=== PATIENT | male | born 1980 | race Caucasian/White ===

== ENCOUNTER 2017-01-25 19:07 | Observation (INO) | payer OTHER ==
[2017-01-25] MEDS ORDERED: NITROGLYCERIN SL TABS 0.4 MG TAB SUBLINGUAL STA (19:24)
[2017-01-25] MEDS ORDERED: diphenhydrAMINE 50 MG/ML 1 ML VIAL IVP STA (19:24)
[2017-01-25] MEDS ORDERED: SODIUM CHLORIDE 0.9% 500 ML IV STA (19:24)
[2017-01-25] MEDS ORDERED: ASPIRIN 81 MG PO STA (19:24)
[2017-01-25 19:53] LABS: Basophils % (A) 1 %; CH 32.8; CHCM 36.7; Eosinophils # (A) 0.1 k/uL (0-0.7); Eosinophils % (A) 1 %; HGB 16.6 gm/dL (13.0-17.5); Luc # (Auto) 0.21; Luc % (Auto) 3; Lymphocytes # (A) 1.2 k/uL (1.0-4.8); Lymphocytes % (A) 17 %; MCH 31.6 pg (25.0-35.0); MCHC 35.2 g/dL (31.0-37.0); MCV 89.7 fL (80.0-100.0); Mean Platelet Volume 6.6; Monocytes # (A) 0.5 k/uL (0-1.0); Monocytes % (A) 7 %; Neutrophils # (A) 5.2 k/uL (1.3-7.7); Neutrophils % (A) 72 %; RBC 5.25 m/uL (4.30-5.90); RDW 12.3 % (11.5-15.5); WBC 7.1 k/uL (3.8-10.6); WBC (Perox) 6.69
[2017-01-25 19:59] LABS: ALT 39 U/L (21-72); AST 30 U/L (17-59); Alkaline Phosphatase 75 U/L (38-126); Anion Gap 13 mmol/L; Blood Urea Nitrogen 14 mg/dL (9-20); Carbon Dioxide 24 mmol/L (22-30); Chloride 102 mmol/L (98-107); Glucose 99 mg/dL (74-99); Non-African American GFR(MDRD) >60 (>60 ml/min/1.73 sqM); Potassium 3.9 mmol/L (3.5-5.1); Sodium 139 mmol/L (137-145); Total Bilirubin 0.6 mg/dL (0.2-1.3); Total Protein 7.3 g/dL (6.3-8.2)
--- NOTE | 2017-01-25 20:01 | ED ---
Chest Pain HPI - General Chief Complaint: Chest Pain Stated Complaint: chest tightness, family Hx Time Seen by Provider: 01/25/17 19:19 Source: patient, RN notes reviewed Mode of arrival: wheelchair Limitations: no limitations - History of Present Illness Initial Comments: This a 36-year-old male presents emergency Department with chief complaint of chest pain. Patient states that he is plan the [facility] around 11:30 AM this morning and states he developed pain. Patient states it's centralized left chest pain with burning sensation over his left anterior chest wall and pain that radiates to his back. Patient denies any headache, dizziness, fever, chills. He does have some shortness of breath pain with deep inspiration. Patient states that he is very anxious is not sure if this is related to anxiety. Patient states he is a recovering drug addict and does not want any Kernig's or benzodiazepines. Patient states that he does not have a history of hyperlipidemia, diabetes, hypertension no he does not see a physician on a regular basis. Patient does state that he has a strong family history of cardiac disease. Patient states that he typically smokes 2 cigars daily. - Related Data Home Medications Medication Instructions Recorded Confirmed Aspirin/Acetaminophen/Caffeine 1 tab PO DAILY PRN 01/25/17 01/25/17 [Excedrin Migraine Caplet] Ranitidine HCl [Zantac] 75 mg PO DAILY PRN 01/25/17 01/25/17 Allergies Allergy/AdvReac Type Severity Reaction Status Date / Time bee venom protein (honey bee) Allergy Anaphylaxis Verified 01/25/17 20:40 NARCOTICS Allergy Unknown Uncoded 01/25/17 20:40 Review of Systems ROS Statement: Those systems with pertinent positive or pertinent negative responses have been documented in the HPI. ROS Other: All systems not noted in ROS Statement are negative. EKG Findings - EKG Comments: EKG Findings:: EKG performed at 19:27 normal sinus rhythm with a rate of 99 NM interval 174 QRS duration 84 QT/QTC 322/413 Past Medical History Past Medical History: No Reported History History of Any Multi-Drug Resistant Organisms: None Reported Past Surgical History: No Surgical Hx Reported Past Psychological History: Anxiety Smoking Status: Light tobacco smoker Past Alcohol Use History: None Reported Past Drug Use History: None Reported General Exam Limitations: no limitations General appearance: alert, in no apparent distress Head exam: Present: atraumatic, normocephalic, normal inspection Neck exam: Present: normal inspection, full ROM. Absent: tenderness, meningismus, lymphadenopathy Respiratory exam: Present: normal lung sounds bilaterally. Absent: respiratory distress, wheezes, rales, rhonchi, stridor Cardiovascular Exam: Present: regular rate, normal rhythm, normal heart sounds. Absent: systolic murmur, diastolic murmur, rubs, gallop, clicks GI/Abdominal exam: Present: soft, normal bowel sounds. Absent: distended, tenderness, guarding, rebound, rigid Neurological exam: Present: alert, oriented X3, CN II-XII intact Psychiatric exam: Present: anxious Skin exam: Present: warm, dry, intact, normal color. Absent: rash Course Vital Signs 01/25/17 01/25/17 19:14 20:45 Temperature 97.5 F L Pulse Rate 97 92 Respiratory 20 16 Rate Blood Pressure 135/82 147/78 O2 Sat by Pulse 100 100 Oximetry Disposition Clinical Impression: Chest pain Disposition: ADMITTED IP TO THIS HOSP Condition: Stable Referrals: None,Stated [Primary Care Provider] - 1-2 days
[2017-01-25 20:03] LABS: INR 1.1 (<1.2); Partial Thromboplastin Time 24.9 sec (22.0-30.0); Prothrombin Time 11.3 sec (9.0-12.0)
[2017-01-25 20:11] LABS: Creatine Kinase 481 U/L (55-170)
--- NOTE | 2017-01-25 20:17 | XR ---
EXAMINATION TYPE: XR chest 2V DATE OF EXAM: 01/25/2017 COMPARISON: NONE HISTORY: Chest pain TECHNIQUE: Frontal and lateral views of the chest are obtained. FINDINGS: Heart and mediastinum are normal. Lungs are clear. Diaphragm is normal. Bony thorax is int act. There are chest leads. IMPRESSION: Normal chest
[2017-01-25 20:23] LABS: Creatine Kinase MB 0.9 ng/mL (0.0-2.4); Troponin I <0.012 ng/mL (0.000-0.034)
[2017-01-25] MEDS ORDERED: HEPARIN SODIUM,PORCINE 5,000 UNIT/ML 1 ML VIAL IV ONE (21:05)
[2017-01-25] MEDS ORDERED: HEPARIN SODIUM,PORCINE 5,000 UNIT/ML 1 ML VIAL IV PRN (21:05)
[2017-01-25] MEDS ORDERED: HEPARIN SODIUM,PORCINE/D5W PMX 25,000 UNIT in DEXTROSE/WATER 1 500ML.BAG IV SCH (21:15)
[2017-01-25] MEDS ORDERED: NITROGLYCERIN SL TABS 0.4 MG TAB SUBLINGUAL PRN (21:24)
[2017-01-25] MEDS ORDERED: ACETAMINOPHEN TAB 325 MG TAB PO PRN (22:19)
[2017-01-25] MEDS ORDERED: FAMOTIDINE 20 MG TAB PO PRN (22:21)
--- NOTE | 2017-01-25 22:31 | P.HPIM ---
History of Present Illness H&P Date: 01/25/17 Chief Complaint: Chest pain 36-year-old male with past medical history significant for anxiety and GERD presented to emergency department because of the fourth episode of chest pain since October. The pain started at 11 in the morning today when he was playing guitar. The pain feels like burning sensation in the left side of the chest and is associated with tightness in the left side of the neck. The pain has been constant since it started and he actually is still having it at the time of the encounter. He denies having any recent flulike illness. He did mention some nausea, ''feeling loopy'', but no vomiting, palpitations or shortness of breath. Patient thought that he was having a panic attack because he suffers from a lot of anxiety. He describes having a panic attack on average every 3 weeks. He went to a psychiatrist who offered him medications to treat anxiety but he refused. Review of Systems 12 point review of system performed, negative except for HPI Past Medical History Past Medical History: No Reported History Additional Past Medical History / Comment(s): Anxiety, GERD History of Any Multi-Drug Resistant Organisms: None Reported Past Surgical History: No Surgical Hx Reported Past Psychological History: Anxiety Smoking Status: Light tobacco smoker Past Alcohol Use History: None Reported Past Drug Use History: None Reported - Past Family History Father Additional Family Medical History / Comment(s): Father had coronary artery disease and congestive heart failure at age 65, uncle diagnosis coronary artery disease at age 51 and grandfather of heart attack at age 55. Medications and Allergies Home Medications Medication Instructions Recorded Confirmed Type Aspirin/Acetaminophen/Caffeine 1 tab PO DAILY PRN 01/25/17 01/25/17 History [Excedrin Migraine Caplet] Ranitidine HCl [Zantac] 75 mg PO DAILY PRN 01/25/17 01/25/17 History Allergies Allergy/AdvReac Type Severity Reaction Status Date / Time bee venom protein (honey bee) Allergy Anaphylaxis Verified 01/25/17 20:40 NARCOTICS Allergy Unknown Uncoded 01/25/17 20:40 Physical Exam Vitals: Vital Signs Temp Pulse Resp BP Pulse Ox 01/25/17 20:45 92 16 147/78 100 01/25/17 19:14 97.5 F L 97 20 135/82 100 Intake and Output 01/25/17 01/25/17 01/25/17 06:59 14:59 22:59 Other: Weight 68.039 kg Patient Weight 01/26/17 06:59 Weight 68.039 kg Constitutional: No acute distress, conversant, pleasant Eyes:Anicteric sclerae, moist conjunctiva, no lid-lag, PERRLA, ENMT: Oropharynx clear, no erythema, exudates Neck: Supple, FROM, no masses, or JVD, No carotid bruits, No thyromegaly Lungs: Clear to auscultation, Clear to percussion, Normal respiratory effort, no accessory muscle use Cardiovascular: Heart regular in rate and rhythm, No murmurs, gallops, or rubs, No peripheral edema Abdominal: Soft, Nontender, no guarding, rebound or rigidity, Normoactive bowel sounds, No hepatomegaly, No splenomegaly, No palpable mass Skin: Normal temperature, tone, texture, turgor, no induration, No subcutaneous nodules, No rash, lesions, No ulcers Extremities: No digital cyanosis, No clubbing, Pedal pulses intact and symmetrical, Radial pulses intact and symmetrical, No calf tenderness Psychiatric: Alert and oriented to person, place and time, appropriate affect, intact judgement Neuro: Muscles Strength 5/5 in all 4 extremities, Sensation to light touch grossly present throughout, Cranial nerves II-XII grossly intact, no focal sensory deficits Results CBC & Chem 7: 01/25/17 19:33 01/25/17 19:33 Labs: Abnormal Lab Results - Last 24 Hours (Table) 01/25/17 Range/Units 19:33 Total Creatine Kinase 481 H (55-170) U/L Assessment and Plan Plan: #1 acute chest pain Unclear etiology at this point, could be secondary to coronary artery disease vs. anxiety vs. GERD Admit to observation on telemetry Cycle troponins Check lipid profile Nuclear stress imaging in the morning #2 anxiety Counseled regarding the benefit of behavioral therapy #3 DVT prophylaxis Low risk, ambulatory, not indicated
[2017-01-25 23:08] LABS: Creatine Kinase 399 U/L (55-170)
[2017-01-25 23:21] LABS: Creatine Kinase MB 0.8 ng/mL (0.0-2.4); Troponin I <0.012 ng/mL (0.000-0.034)
[2017-01-26 08:04] VITALS: BP 102/59; PULSE 85; RESP 16; TEMP 98.4
[2017-01-26 08:23] LABS: ALT 39 U/L (21-72); AST 28 U/L (17-59); Alkaline Phosphatase 60 U/L (38-126); Anion Gap 9 mmol/L; Blood Urea Nitrogen 16 mg/dL (9-20); Calcium 9.2 mg/dL (8.4-10.2); Carbon Dioxide 27 mmol/L (22-30); Chloride 106 mmol/L (98-107); Cholesterol 135 mg/dL (<200); Creatine Kinase 325 U/L (55-170); Glucose 77 mg/dL (74-99); HDL Cholesterol 37 mg/dL (40-60); Magnesium 2.1 mg/dL (1.6-2.3); Non-African American GFR(MDRD) >60 (>60 ml/min/1.73 sqM); Phosphorus 5.1 mg/dL (2.5-4.5); Potassium 4.7 mmol/L (3.5-5.1); Sodium 142 mmol/L (137-145); Total Bilirubin 0.3 mg/dL (0.2-1.3); Total Protein 6.3 g/dL (6.3-8.2)
[2017-01-26 08:34] LABS: Creatine Kinase MB 0.7 ng/mL (0.0-2.4); Troponin I <0.012 ng/mL (0.000-0.034)
[2017-01-26] MEDS ORDERED: ASPIRIN 325 MG TAB PO SCH (09:00)
--- NOTE | 2017-01-26 13:11 | CONS ---
CONSULTATION Mr. Oscar is a 36-year-old gentleman who is seen for cardiac evaluation. This patient has a history of significant anxiety, history of panic attacks and GERD. He presented to the hospital with a complaint of chest pain. The pain was in the left anterior part of the chest, he described as a burning sensation in the left side of the chest with some tightness in the neck. Pain was constant and he did not have any nausea. Vomiting or sweating. The patient gives a history that he has been having panic attacks on average every three weeks. The patient denies any exertional chest discomfort and he goes to the gym 3 times a week. He does have a family history of coronary artery disease. PAST MEDICAL HISTORY: Includes no history of any major surgeries. History of anxiety and GERD. SOCIAL HISTORY: Smoking status: The patient has a prior history of light tobacco smoker. REVIEW OF THE SYSTEM: Is otherwise unremarkable. PHYSICAL EXAMINATION: At present reveals a 36-year-old, thinly built gentleman who does not appear to be in any acute distress. Patient's blood pressure is 102/59 mmHg. Heart rate is 85 per minute. HEENT examination is negative. NECK: Supple. There is no increase in jugular venous pressure. Both the carotid pulses are felt. There is no bruit. Chest is symmetrical. Heart the PMI is not felt. First and second heart sounds are normal. There is no evidence of any murmur. Lungs are clinically clear to auscultation and percussion. Abdomen is negative. Extremities: Peripheral pulses 2+. LABORATORY DATA: EKG shows normal sinus rhythm without any acute ischemic changes. Cardiac enzymes are normal. Patient's cholesterol is 135 and LDL level is 66. IMPRESSION: This patient's chest pains are suggestive for atypical chest pain. The patient does have a family history of coronary artery disease. His LDL level is 66. RECOMMENDATIONS: Patient can be discharged home. We will do a stress test as an outpatient and may consider doing coronary CT calcium score as an outpatient in view of patient's family history of coronary artery disease. MMODL / IJN: [id number] /
--- NOTE | 2017-01-26 17:51 | P.DS ---
Providers Date of admission: 01/25/17 21:23 Expected date of discharge: 01/26/17 Attending physician: Ahmet Boyd MD Consults: 01/25/17 21:25 Consult Physician Urgent Consulting Provider: [facility] Consult Reason/Comments: chest pain Do you want consulting provider notified?: Yes Primary care physician: Stated None - Discharge Diagnosis(es) (1) Chest pain Current Visit: Yes Status: Acute (2) Anxiety disorder Current Visit: Yes Status: Acute (3) Panic disorder Current Visit: Yes Status: Acute Hospital Course: The patient is a 36-year-old male with no coronary risk factors that was admitted for atypical chest pain to rule out ACS, his initial EKG and sequential troponins were negative for any acute ischemia. Cardiology was consulted and recommended no further aggressive workup while hospitalized he was scheduled to follow-up in cardiology clinic with a plan for a stress echocardiogram, it was thought that his chest pain was secondary to panic attack and generalized underlying anxiety disorder. In discussions with treatment for this the patient did not want any benzodiazepines for therapy and was not willing to go on any antidepressant or anti-anxiolytic medications, he was alert however willing to attempt to try Atarax to control his anxiety. He was given a prescription and told to follow up with his PCP. He was subsequently discharged home in stable condition. This discharge process took less than 30 minutes Patient Condition at Discharge: Stable Plan - Discharge Summary New Discharge Prescriptions: No Action Ranitidine HCl [Zantac] 75 mg PO DAILY PRN PRN Reason: Heartburn Aspirin/Acetaminophen/Caffeine [Excedrin Migraine Caplet] 1 tab PO DAILY PRN PRN Reason: Migraine Headache Discharge Medication List Aspirin/Acetaminophen/Caffeine [Excedrin Migraine Caplet] 1 tab PO DAILY PRN [History] Ranitidine HCl [Zantac] 75 mg PO DAILY PRN 01/25/17 [History] Follow up Appointment(s)/Referral(s): None,Stated [Primary Care Provider] - 1-2 days Lilibeth Flores MD [STAFF PHYSICIAN] - 02/11/17 3:45 pm (Follow up with Dr. Flores scheduled for 1545 on 02/11/2017 @ [facility]; [address] [place] [address]. Per [employer] PT is to call and schedule Stress Echo. )
== END 2017-01-26 12:20 | disposition home or self-care (01) ==
LOC: EC 19:07 → 3OBS 21:23
PROVIDERS: ADMIT Internal Medicine; ATTEND Internal Medicine
DX: R07.89 Other chest pain (principal); F41.0 Panic disorder [episodic paroxysmal anxiety]; K21.9 Gastro-esophageal reflux disease without esophagitis; R11.0 Nausea; R06.02 Shortness of breath; R20.8 Other disturbances of skin sensation; Z82.49 Family history of ischemic heart disease and other diseases of the circulatory system; F17.290 Nicotine dependence, other tobacco product, uncomplicated; Z88.5 Allergy status to narcotic agent; Z91.030 Bee allergy status
CPT/HCPCS: 99285; 96361 ×2; 96375 ×2; 96376 ×2; 96365; 96366 ×2; 36415; 93005; 85379; 80061; 80053 ×2; 82550 ×2; 82553 ×2; 83735 ×2; 84100; 84484 ×2; 85025; 85610; 85730; 71020; G0378 ×2; J1200; J1644 ×2